=== PATIENT | male | born 1950 | race Caucasian/White ===

== ENCOUNTER → 2016-10-03 | Outpatient (CLI) | payer BC | LOC: EDSTATUS 08:15 → GMAB 09:38 → LAB.O 09:38 → EDSTATUS 09:50 | PROVIDERS: ATTEND Family Medicine | DX: K90.9 Intestinal malabsorption, unspecified (principal); E88.1 Lipodystrophy, not elsewhere classified ==

== ENCOUNTER → 2017-04-10 | Outpatient (CLI) | payer BC ==
--- NOTE | 2017-04-10 16:26 | NM ---
PROCEDURE: Hepatobiliary w/oCCK Clinical History: CALCULUS OF GALLBLADDER W/O CHOLECYSTITIS W/O OBSTRUCTION Indication: Cholelithiasis Comparison: There are no comparable prior examinations available at present. Technique: 7.9 Millicuries of technetium mebrofenin was given intravenously and the patient was imaged for the subsequent 60 minutes after radiopharmaceutical injection. At the end of initial phase scanning the patient was given a fatty meal challenge Findings: The liver shows homogenous tracer uptake. There is no intrahepatic biliary dilatation. Activity seen in the gallbladder, common duct and the small bowel loops in the initial phase scanning At the end of the initial phase scanning the patient was given a fatty meal challenge There is no documentation of any subjective symptoms experienced by the patient following fatty meal challenge. The gallbladder ejection fraction is 49.0 percent. Impression: 1. There is no scintigraphic evidence of acute cholecystitis. 2. The gallbladder ejection fraction is normal at 49% . 3.There is no documentation of any subjective symptoms experienced by the patient following fatty meal challenge. Location of Interpretation: [id number] Electronically signed by: Jai Quick MD 04/10/2017 4:24 PM CDT Workstation: [id number]
== END | disposition home or self-care (01) ==
LOC: NM 09:33
PROVIDERS: ATTEND Family Medicine
DX: K80.20 Calculus of gallbladder without cholecystitis without obstruction (principal)
CPT/HCPCS: 78226; A9537